=== PATIENT | female | born 1965 | race Caucasian/White ===

== ENCOUNTER → 2018-11-08 | Outpatient (CLI) | payer BC ==
[~2018-11-08] MED LIST: AMLO5TAB6 PO; ASPI81TAEC PO; ATEN50TA2; ATEN50TA2 PO; ATOR1TAB21 PO; ATOR40TA75 PO; AZIT-12 PO; CIPR500T3 PO; FLAG500T PO; HYDR25TAB; HYDR25TAB PO; LEVO75TA34 PO; SYNT75TA PO; TELM1TAB37; TELM1TAB37 PO; TYLE325T5 PO; VIRT1SOL13 PO
--- NOTE | 2018-11-09 02:14 | REP ---
Clinical: Acute bronchitis . Comparison: 09/30/2015 . Technique: PA and lateral. Findings: The mediastinum and cardiac silhouette are normal. The lung balderas are clear and without acute consolidation, effusion, or pneumothorax. The skeletal structures are intact and normal. Impression: 1. No acute cardiopulmonary process. Electronically Signed by Rashawn Thomas MD 11/09/2018 02:05 A
== END ==
LOC: M WUC 10:16
PROVIDERS: ATTEND Physician Assistant
DX: J20.9 Acute bronchitis, unspecified (principal)

== ENCOUNTER 2018-11-13 16:43 | Observation (INO) | payer BC ==
[~2018-11-13] VITALS: Ht 172.7 cm; Wt 79.4 kg
[~2018-11-13 16:43] MED LIST changes: -ATEN50TA2; -ATEN50TA2 PO; -ATOR40TA75 PO; -AZIT-12 PO; -HYDR25TAB; -HYDR25TAB PO; -TELM1TAB37; -TELM1TAB37 PO; -VIRT1SOL13 PO
[2018-11-13] MEDS ORDERED: TELM1TAB37 (16:51)
[2018-11-13] MEDS ORDERED: HYDR25TAB (16:51)
[2018-11-13] MEDS ORDERED: ATEN50TA2 (16:51)
[2018-11-13 17:46] LABS: HEMATOCRIT 34.1 % (36.0-47.0); HEMOGLOBIN 12.7 g/dl (12.0-15.5); MEAN CORPUSCULAR HEMOGLOBIN 31.5 pg (27.0-33.0); MEAN CORPUSCULAR HGB CONC 37.2 g/dl (32.0-36.5); MEAN CORPUSCULAR VOLUME 84.6 fl (80.0-96.0); PLATELET COUNT, AUTOMATED 163 10^3/uL (150-450); RED BLOOD COUNT 4.03 10^6/uL (4.00-5.40)
[2018-11-13 18:02] LABS: BLOOD UREA NITROGEN 9 MG/DL (7-18); CARBON DIOXIDE LEVEL 23 MEQ/L (21-32); CHLORIDE LEVEL 86 MEQ/L (98-107); CREATININE FOR GFR 0.56 MG/DL (0.55-1.30); GLOMERULAR FILTRATION RATE > 60.0 (>51); GLUCOSE, FASTING 96 MG/DL (70-100); MAGNESIUM LEVEL 1.8 MG/DL (1.8-2.4); POTASSIUM SERUM 2.4 MEQ/L (3.5-5.1); SODIUM LEVEL 121 MEQ/L (136-145)
[2018-11-13 18:38] LABS: FREE T4 1.43 NG/DL (0.76-1.46)
[2018-11-13] MEDS ORDERED: POTASSIUM CHLORIDE 10 MEQ SR TABLET PO ONE (19:00)
[2018-11-13] MEDS ORDERED: NS 1,000 ML IV SCH ×2 (19:00→21:31)
--- NOTE | 2018-11-13 19:10 | REP ---
Chest two views HISTORY: Hyponatremia Comparison: 11/08/2018 The lungs are clear. The heart is normal in size. The pulmonary vasculature is normal in appearance. The bony structure is intact. IMPRESSION: No acute disease. Electronically Signed by Fausto Hazel MD 11/13/2018 07:01 P
[2018-11-13 19:27] LABS: CREATININE,RANDOM URINE 23.1 MG/DL
[2018-11-13] MEDS ORDERED: KCL 20MEQ IN 100ML SWI (KRUN) 20 MEQ in APPROPRIATE DILUENT 1 EA IV ONE ×2 (21:45)
--- NOTE | 2018-11-13 22:15 | ECGEPIP ---
Stationary ECG Study [facility] - ED Test Date: 2018-11-13 Pat Name: SOY HUMPHREY Department: Room: - Gender: F Manager Category: [facility] : 1965 Requested By: DANIEL GONZALES Order Number: [id number] Reading MD: Herbert Silva Measurements Intervals [place] Rate: 68 P: 6 KS: 161 QRS: 15 QRSD: 106 T: 9 QT: 471 QTc: 504 Interpretive Statements SINUS RHYTHM PROLONGED QT INTERVAL Previous QTc on tracing done 09-30-18 was 436 ms Electronically Signed On 11-13-2018 22:15:20 EDT by Herbert Silva
[2018-11-13] MEDS ORDERED: ATEN50TA2 PO (22:22)
[2018-11-13] MEDS ORDERED: AZIT-12 PO (22:22)
[2018-11-13] MEDS ORDERED: TELM1TAB37 PO (22:22)
[2018-11-13] MEDS ORDERED: ATOR40TA75 PO (22:22)
[2018-11-13] MEDS ORDERED: HYDR25TAB PO (22:22)
[2018-11-13] MEDS ORDERED: VIRT1SOL13 PO (22:22)
[2018-11-13] MEDS ORDERED: ASPI81TAEC PO (22:22)
[2018-11-13] MEDS: KCL 10MEQ/100ML SWI (KRUN) 10 MEQ in APPROPRIATE DILUENT 1 EA IV SCH (22:26)
[2018-11-13] MEDS: ATORVASTATIN 20 MG TAB PO SCH (23:44)
[2018-11-13] MEDS: ATENOLOL 50 MG TAB PO SCH (23:45)
[2018-11-13 23:48] VITALS: BP 126/80
[2018-11-14] VITALS (8 sets, daily range): BP systolic 98–135; BP diastolic 58–86
[2018-11-14] MEDS: KCL 10MEQ/100ML SWI (KRUN) 10 MEQ in APPROPRIATE DILUENT 1 EA IV SCH (00:45)
[2018-11-14] MEDS: LEVOTHYROXINE 75MCG TABLET (0.075MG) PO SCH (05:27)
[2018-11-14 07:06] LABS: BLOOD UREA NITROGEN 6 MG/DL (7-18); CALCIUM LEVEL 7.9 MG/DL (8.5-10.1); CARBON DIOXIDE LEVEL 26 MEQ/L (21-32); CHLORIDE LEVEL 98 MEQ/L (98-107); CREATININE FOR GFR 0.69 MG/DL (0.55-1.30); GLOMERULAR FILTRATION RATE > 60.0 (>51); GLUCOSE, FASTING 91 MG/DL (70-100); POTASSIUM SERUM 3.2 MEQ/L (3.5-5.1); SODIUM LEVEL 131 MEQ/L (136-145)
--- NOTE | 2018-11-14 07:08 | HPE ---
DATE OF ADMISSION: 11/13/2018 HISTORY OF PRESENT ILLNESS (HPI): This is a 53-year-old female with past medical history of hypertension, hyperlipidemia, hypothyroidism who presents to the emergency room after being sent by her primary medical doctor, Dr. Cody for abnormal labs. The patient has been feeling weak for approximately seven days now, was treated for bronchitis which did not take effect. Her weakness persisted. Labs were sent and the patient was found to be hypokalemic and hyponatremic. In the emergency room (ER) the patient was started on normal saline and potassium was repleted. She denies any other associated symptoms. No chest pain or shortness of breath. She will be admitted for further management of her electrolyte abnormalities. To note, she also has not been given any new medications in the past few months. PAST MEDICAL HISTORY: 1. Hypertension. 2. Hyperlipidemia. 3. Hypothyroidism. ALLERGIES: PENICILLIN. SOCIAL HISTORY: The patient has a 10-pack year history, quit approximately 27 years ago. Denies alcohol or illicit drugs. MEDICATIONS: - amlodipine 5 mg by mouth daily - aspirin 81 mg by mouth daily - atenolol 50 mg by mouth daily - atorvastatin 40 mg by mouth daily - hydrochlorothiazide 25 mg by mouth daily - Synthroid 75 mcg by mouth daily - combisartan 80 mg orally daily REVIEW OF SYSTEMS: Negative for all 10 major systems except what has been mentioned in the HPI. PHYSICAL EXAMINATION: VITAL SIGNS: Blood pressure 143/94, heart 68 and regular, respirations 18, temperature 96.2. Oxygen saturation 96% on room air. HEAD: Normocephalic atraumatic. NECK: Supple, no jugular venous distention (JVD). LUNGS: Clear to auscultation. HEART: S1 audible, no murmurs appreciated. ABDOMEN: Soft, positive bowel sounds. EXTREMITIES: No pedal edema. SKIN: Intact. NEUROLOGIC EXAM: The patient is awake, alert and oriented times three. LABORATORY DATA: Sodium 121, potassium 2.4, chloride 86, CO2 23, anion gap is 12, BUN 9, creatinine 0.56, magnesium is 1.8, TSH 4.6. Urine random osmolality is 165 and sodium 23. IMPRESSION: 1. Hyponatremia. 2. Hyperkalemia. PLAN: The patient is to be admitted to the progressive care unit (PCU). I believe the hyponatremia and the hyperkalemia are both secondary to the thiazide that she is on. I am going to hold her hydrochlorothiazide, further replete her potassium stores and give her general hydration with normal saline at 75 mL per hour and provide her a diet and will follow her sodium and potassium trends. Once they have recovered the patient will likely need a new antihypertensive other than the thiazide. Will continue following her care in the PCU.
[2018-11-14] MEDS ORDERED: POTASSIUM CHLORIDE 10 MEQ SR TABLET PO ONE (07:30)
[2018-11-14] MEDS ORDERED: TELMISARTAN 20 MG TAB PO SCH (09:00)
[2018-11-14] MEDS: AZITHROMYCIN 250 MG TAB PO SCH (09:01)
[2018-11-14] MEDS: ASPIRIN 81 MG ENTERIC TAB PO SCH (09:02)
[2018-11-14 13:35] LABS: BLOOD UREA NITROGEN 6 MG/DL (7-18); CALCIUM LEVEL 8.1 MG/DL (8.5-10.1); CARBON DIOXIDE LEVEL 27 MEQ/L (21-32); CHLORIDE LEVEL 99 MEQ/L (98-107); CREATININE FOR GFR 0.65 MG/DL (0.55-1.30); GLOMERULAR FILTRATION RATE > 60.0 (>51); GLUCOSE, FASTING 86 MG/DL (70-100); POTASSIUM SERUM 3.5 MEQ/L (3.5-5.1); SODIUM LEVEL 132 MEQ/L (136-145)
--- NOTE | 2018-11-14 17:44 | IPN ---
DATE: 11/14/2018 SUBJECTIVE: The patient is seen and examined in the room today. The patient stated her breathing has been improving. Recently, the patient had a cough and runny nose. Denied any acute complaints. OBJECTIVE: VITAL SIGNS: Temperature is 98.5, pulse is 68, respirations 18, blood pressure 98/58, pulse oximetry is 100% in room air. GENERAL: Patient is alert and awake, in no distress. HEENT: Normocephalic, atraumatic. Extraocular motor grossly intact. CARDIOVASCULAR: Positive S1, S2, regular rate. LUNGS: Clear to auscultation bilaterally. ABDOMEN: Soft, nontender. Bowel sounds present. EXTREMITIES: No edema. LABORATORY DATA: Sodium is 131, potassium 3.2, chloride is 98, carbon dioxide 26, BUN 6, creatinine is 0.69, GFR is greater than 60, fasting glucose is 91, calcium is 7.9. ASSESSMENT AND PLAN: 1. Severe hypokalemia. Patient on potassium supplement accordingly. Continue to follow the repeat potassium level. No events on telemetry. Diuretic on hold. 2. Hyponatremia. Patient had IV resuscitation on admission. Sodium level is improving. IV fluid has been discontinued. We will continue watching the sodium level closely to prevent overcorrection. 3. Hypothyroidism. On Synthroid. 4. Hypertension. Currently due to significant electrolyte abnormalities, diuretic will be on hold. Will watch the blood pressure closely. 5. Deep vein thrombosis (DVT) prophylaxis. On thromboembolism deterrent (MERI) compression.
[2018-11-14 19:33] LABS: BLOOD UREA NITROGEN 9 MG/DL (7-18); CALCIUM LEVEL 8.1 MG/DL (8.5-10.1); CARBON DIOXIDE LEVEL 27 MEQ/L (21-32); CHLORIDE LEVEL 98 MEQ/L (98-107); GLOMERULAR FILTRATION RATE > 60.0 (>51); GLUCOSE, FASTING 121 MG/DL (70-100); POTASSIUM SERUM 3.3 MEQ/L (3.5-5.1); SODIUM LEVEL 132 MEQ/L (136-145)
[2018-11-14] MEDS: ATENOLOL 50 MG TAB PO SCH (21:00)
[2018-11-14] MEDS: ATORVASTATIN 20 MG TAB PO SCH (21:37)
[2018-11-15 04:45] VITALS: BP 129/88
[2018-11-15] MEDS: LEVOTHYROXINE 75MCG TABLET (0.075MG) PO SCH (05:32)
[2018-11-15 05:45] LABS: HEMATOCRIT 32.5 % (36.0-47.0); HEMOGLOBIN 11.3 g/dl (12.0-15.5); MEAN CORPUSCULAR HGB CONC 34.8 g/dl (32.0-36.5); PLATELET COUNT, AUTOMATED 154 10^3/uL (150-450); RED BLOOD COUNT 3.65 10^6/uL (4.00-5.40); WHITE BLOOD COUNT 4.6 10^3/uL (4.0-10.0)
[2018-11-15 06:06] LABS: BLOOD UREA NITROGEN 9 MG/DL (7-18); CALCIUM LEVEL 7.9 MG/DL (8.5-10.1); CARBON DIOXIDE LEVEL 28 MEQ/L (21-32); CHLORIDE LEVEL 102 MEQ/L (98-107); CREATININE FOR GFR 0.69 MG/DL (0.55-1.30); GLOMERULAR FILTRATION RATE > 60.0 (>51); GLUCOSE, FASTING 88 MG/DL (70-100); MAGNESIUM LEVEL 1.9 MG/DL (1.8-2.4); POTASSIUM SERUM 3.5 MEQ/L (3.5-5.1); SODIUM LEVEL 135 MEQ/L (136-145)
[2018-11-15 08:00] VITALS: BP 126/80
[2018-11-15] MEDS: AZITHROMYCIN 250 MG TAB PO SCH (09:16)
[2018-11-15] MEDS: ASPIRIN 81 MG ENTERIC TAB PO SCH (09:17)
--- NOTE | 2018-11-21 18:48 | DSES ---
DATE OF ADMISSION: 11/13/2018 DATE OF DISCHARGE: 11/15/2018 CONSULTANTS: None. PRIMARY CARE PROVIDER: Dr. Cody DISCHARGE DIAGNOSES: 1. Severe hypokalemia. 2. Hyponatremia. 3. Hypothyroidism. 4. Hypertension. HOSPITALIZATION COURSE: The patient is a 53-year-old female who was sent to [facility] emergency room by primary care provider on 11/13/2018 for abnormal laboratories. Prior to the admission, the patient was treated for bronchitis. In the emergency room, the patient was found to have significant hyponatremia and hypokalemia, thought secondary to the diuretic. The patient was admitted under the hospitalist service and supplements were given accordingly. Medications were adjusted. Electrolyte abnormalities continued to improve. Clinically, the patient demonstrated improvement. On 11/15/2018, the patient was determined stable for discharge with recommendations to followup with the primary care provider in 1 to 2 weeks. VITAL SIGNS ON DISCHARGE: Temperature 97, pulse 66, respirations 18, blood pressure 126/80, pulse oximetry 98% in room air. LABORATORY DATA: On the day of discharge, WBC 4.6, hemoglobin 11.3, hematocrit 32.5, platelet count is 154. Sodium is 135, potassium 3.5, chloride 102, carbon dioxide 28, BUN 9, creatinine 0.69, GFR greater than 60, fasting glucose 88, calcium is 7.9, magnesium 1.9. Chest x-ray on 11/13/2018 showed no acute disease. DISCHARGE MEDICATIONS: - aspirin 81 mg by mouth daily - atorvastatin 40 mg by mouth at night - azithromycin as directed - levothyroxine 75 mcg by mouth daily - Virtussin A/C by mouth every 6 hours as needed for cough DISCHARGE INSTRUCTIONS: Discontinue line. Discharge home. Activity as tolerated. Low salt diet as tolerated. The patient will followup with the primary care provider in 1 to 2 weeks. Discharge condition is fair. Discharge took greater than 30 minutes.
== END 2018-11-15 10:03 | disposition home or self-care (01) ==
LOC: M ED 16:43 → M ED INP 21:31 → M PCU 11-14 14:53
PROVIDERS: ADMIT Internal Medicine; ATTEND Internal Medicine Nephrology
DX: E87.6 Hypokalemia (principal); E87.1 Hypo-osmolality and hyponatremia; I10 Essential (primary) hypertension; E78.5 Hyperlipidemia, unspecified; E03.9 Hypothyroidism, unspecified; Z87.891 Personal history of nicotine dependence; Z88.0 Allergy status to penicillin; Z79.82 Long term (current) use of aspirin; Z79.899 Other long term (current) drug therapy

== ENCOUNTER → 2018-11-13 | Outpatient (CLI) | payer BC ==
[2018-11-13 14:55] LABS: BASO % 0.4 % (0.0-1.0); EOS # 0.1 10^3/uL (0.0-0.50); HEMATOCRIT 36.4 % (36.0-47.0); HEMOGLOBIN 13.5 g/dl (12.0-15.5); LYMPH # 1.5 10^3/uL (1.5-4.5); LYMPH % 27.1 % (24.0-44.0); MEAN CORPUSCULAR HEMOGLOBIN 31.8 pg (27.0-33.0); MEAN CORPUSCULAR VOLUME 85.8 fl (80.0-96.0); MONO # 0.7 10^3/uL (0.0-0.8); MONO % 12.2 % (0.0-5.0); NEUTROPHILS # 3.1 10^3/uL (1.8-7.7); PLATELET COUNT, AUTOMATED 183 10^3/uL (150-450); RED BLOOD COUNT 4.24 10^6/uL (4.00-5.40); WHITE BLOOD COUNT 5.5 10^3/uL (4.0-10.0)
[2018-11-13 15:01] LABS: MEAN CORPUSCULAR HGB CONC 36.4 g/dl (32.0-36.5)
[2018-11-13 15:34] LABS: BLOOD UREA NITROGEN 9 MG/DL (7-18); CALCIUM LEVEL 8.3 MG/DL (8.5-10.1); CARBON DIOXIDE LEVEL 28 MEQ/L (21-32); CHLORIDE LEVEL 83 MEQ/L (98-107); CREATININE FOR GFR 0.62 MG/DL (0.55-1.30); GLOMERULAR FILTRATION RATE > 60.0 (>51); GLUCOSE, FASTING 90 MG/DL (70-100); POTASSIUM SERUM 2.5 MEQ/L (3.5-5.1); SODIUM LEVEL 122 MEQ/L (136-145)
== END ==
LOC: M WUC 13:44
PROVIDERS: ATTEND Physician Assistant
DX: R53.83 Other fatigue (principal)

== ENCOUNTER 2019-07-25 07:27 | Day surgery (SDC) | payer BC ==
[~2019-07-25] VITALS: Ht 172.7 cm; Wt 81.1 kg
[~2019-07-25 07:27] MED LIST changes: +ALLE1TAB23 PO; +ATEN50TA2; +ATEN50TA2 PO; +ATOR40TA75 PO; +AZIT-12 PO; +HYDR25TAB; +HYDR25TAB PO; +METO1TAB33 PO; +NS 1,000 ML IV ONE; +PROPOFOL 200 MG/20 ML VIAL As Ordered ONE; +TELM1TAB37; +TELM1TAB37 PO; +VIRT1SOL13 PO
[2019-07-25] MEDS ORDERED: LIDOCAINE 2% INJ 100 MG/5 ML SDV (FOR ANES.) As Ordered ONE (07:44)
[2019-07-25] MEDS ORDERED: LABETALOL HCL 100 MG/20 ML VIAL As Ordered ONE (08:52)
[2019-07-25] MEDS ORDERED: PROPOFOL 200 MG/20 ML VIAL As Ordered ONE (08:58)
--- NOTE | 2019-07-25 09:15 | ROOR ---
Patient Name: Na Orellana Procedure Date: 07/25/2019 8:49 AM Date of : 1965 Age: 53 Room: [facility] Gender: Female Note Status: Finalized Procedure: Total Colonoscopy to Cecum + Cold Snare Polypectomy Indications: High risk colon cancer surveillance: Personal history of colonic polyps, Last colonoscopy: 2013 Providers: Ryan Coto MD Referring MD: INA WILL JR, MD Requesting Provider: Medicines: Monitored Anesthesia Care Complications: No immediate complications. Procedure: Pre-Anesthesia Assessment: - The heart rate, respiratory rate, oxygen saturations, blood pressure, adequacy of pulmonary ventilation, and response to care were monitored throughout the procedure. The Colonoscope was introduced through the anus and advanced to the cecum, identified by appendiceal orifice and ileocecal valve. The colonoscopy was performed without difficulty. The patient tolerated the procedure well. The quality of the bowel preparation was excellent. Findings: The perianal and digital rectal examinations were normal. Non-bleeding internal hemorrhoids were found during retroflexion. The hemorrhoids were small and Grade I (internal hemorrhoids that do not prolapse). Multiple small and large-mouthed diverticula were found in the recto-sigmoid colon, sigmoid colon and descending colon. A small polyp was found in the hepatic flexure. The polyp was sessile. The polyp was removed with a cold snare. Resection and retrieval were complete. The exam was otherwise without abnormality on direct and retroflexion views. Impression: - Non-bleeding internal hemorrhoids. - Diverticulosis in the recto-sigmoid colon, in the sigmoid colon and in the descending colon. - One small polyp at the hepatic flexure, removed with a cold snare. Resected and retrieved. - The examination was otherwise normal on direct and retroflexion views. - The exam was otherwise normal to the cecum. Recommendation: - Patient has a contact number available for emergencies. The signs and symptoms of potential delayed complications were discussed with the patient. Return to normal activities tomorrow. Written discharge instructions were provided to the patient. - High fiber diet. - Discharge patient to home. - Continue present medications. - Await pathology results. - Telephone GI clinic for pathology results in 1 week. - Return to referring physician. - Repeat colonoscopy date to be determined after pending pathology results are reviewed for surveillance based on pathology results. - Return to referring physician. - The findings and recommendations were discussed with the patient's family. Ryan Coto MD Ryan Coto MD 07/25/2019 9:14:57 AM Electronically signed by Ryan Coto MD Number of Addenda: 0 Note Initiated On: 07/25/2019 8:49 AM Estimated Blood Loss: Estimated blood loss: none.
[2019-07-25 09:51] VITALS: BP 167/105
== END 2019-07-25 09:49 | disposition home or self-care (01) ==
LOC: M OPP 07:27
PROVIDERS: ATTEND Internal Medicine Gastroenterology
DX: Z12.11 Encounter for screening for malignant neoplasm of colon (principal); Z86.010 Personal history of colon polyps; K64.0 First degree hemorrhoids; D12.3 Benign neoplasm of transverse colon; K57.30 Diverticulosis of large intestine without perforation or abscess without bleeding; Z79.899 Other long term (current) drug therapy; Z88.0 Allergy status to penicillin; Z87.891 Personal history of nicotine dependence

== ENCOUNTER → 2020-02-11 | Outpatient (REF) | payer BC ==
[~2020-02-11] MED LIST changes: -NS 1,000 ML IV ONE; -PROPOFOL 200 MG/20 ML VIAL As Ordered ONE
== END ==
LOC: M LAB REF 20:04
PROVIDERS: ATTEND Physician Assistant
DX: K59.00 Constipation, unspecified (principal)

== ENCOUNTER → 2021-07-15 | Outpatient (CLI) | payer BC ==
[~2021-07-15] MED LIST changes: +AMLO1TAB24 PO; -AMLO5TAB6 PO; +ASPI-569 PO; -ASPI81TAEC PO; +HYDR-3490; +HYDR-3490 PO; -HYDR25TAB; -HYDR25TAB PO
--- NOTE | 2021-07-15 16:47 | REPMRS ---
Patient History The patient states she had a clinical breast exam in 03-16-2021. Patient is postmenopausal. Family history of breast cancer at age 45 in mother, prostate cancer at age 86 in father. No Hormone Replacement Therapy Tomosynthesis is performed. Volpara breast density is b. [facility] lifetime risk of breast cancer 15.3%. Patient states no breast complaints today. Patient has signed MRS History Sheet. Digital Woman Screen Mammo: July 15, 2021 - Exam #: [id number] Bilateral CC and MLO view(s) were taken. Technologist: Ely Vargas Plaque Maker FINDINGS: The breast tissue is heterogeneously dense. This may lower the sensitivity of mammography. There has been no change in the appearance of the mammogram from the prior studies. There is a moderate amount of residual fibroglandular tissue which is fairly symmetric. There is no interval development of dominant mass, areas of architectural distortion, or clustered microcalcification typical of malignancy. Assessment: BI-RADS/ACR category 1 mammogram. Negative Mammogram. Recommendation Routine screening mammogram in 1 year (for women over age 40). This mammogram was interpreted with the aid of an FDA-approved computer-aided dectection system. Electronically Signed By: Brendan Denise MD 07/15/21 [id number]
== END ==
LOC: M WHC 15:01
PROVIDERS: ATTEND Obstetrics & Gynecology
DX: Z12.31 Encounter for screening mammogram for malignant neoplasm of breast (principal); Z78.0 Asymptomatic menopausal state; Z80.3 Family history of malignant neoplasm of breast

== ENCOUNTER → 2021-10-13 | Outpatient (REF) | payer MEDICAID | LOC: M LAB REF 16:11 | PROVIDERS: ATTEND Physician Assistant Medical | DX: R10.9 Unspecified abdominal pain (principal); R53.83 Other fatigue ==

== ENCOUNTER → 2022-04-01 | Outpatient (CLI) | payer MEDICAID ==
[~2022-04-01] MED LIST changes: +CODE118L PO; -VIRT1SOL13 PO
[2022-04-01 19:25] LABS: BASO % 0.3 % (0.0-1.0); EOS # 0.1 10^3/uL (0.0-0.5); EOS % 1.2 % (0.0-3.0); HEMATOCRIT 39.2 % (36.0-47.0); HEMOGLOBIN 13.1 g/dl (12.0-15.5); LYMPH # 1.2 10^3/uL (1.5-5.0); LYMPH % 12.9 % (24.0-44.0); MEAN CORPUSCULAR HGB CONC 33.4 g/dl (32.0-36.5); MEAN CORPUSCULAR VOLUME 95.6 fl (80.0-96.0); MONO # 0.7 10^3/uL (0.0-0.8); MONO % 7.2 % (2.0-8.0); NEUTROPHILS # 7.2 10^3/uL (1.5-8.5); PLATELET COUNT, AUTOMATED 243 10^3/uL (150-450); WHITE BLOOD COUNT 9.2 10^3/uL (4.0-10.0)
[2022-04-01 19:59] LABS: ALBUMIN 4.3 GM/DL (3.2-5.2); ALT/SGPT 33 U/L (12-78); BILIRUBIN,TOTAL 1.2 MG/DL (0.2-1.0); BLOOD UREA NITROGEN 7 MG/DL (7-18); CALCIUM LEVEL 9.8 MG/DL (8.5-10.1); CARBON DIOXIDE LEVEL 31 MEQ/L (21-32); CHLORIDE LEVEL 94 MEQ/L (98-107); CREATININE FOR GFR 0.72 MG/DL (0.55-1.30); GLOMERULAR FILTRATION RATE > 60.0 (>51); GLUCOSE, FASTING 112 MG/DL (70-100); POTASSIUM SERUM 3.5 MEQ/L (3.5-5.1); SODIUM LEVEL 131 MEQ/L (136-145); TOTAL PROTEIN 8.7 GM/DL (6.4-8.2)
== END ==
LOC: M WUC 14:46
PROVIDERS: ATTEND Physician Assistant
DX: R10.30 Lower abdominal pain, unspecified (principal)

== ENCOUNTER → 2022-11-11 | Outpatient (REF) | payer OTHER | LOC: M PLALAB 17:03 | PROVIDERS: ATTEND Nurse Practitioner Family | DX: Z12.4 Encounter for screening for malignant neoplasm of cervix (principal) | CPT/HCPCS: 87624; G0123 ==

== ENCOUNTER → 2023-08-16 | Outpatient (REF) | payer OTHER ==
[~2023-08-16] MED LIST changes: -ALLE1TAB23 PO; +FEXO-157 PO
== END ==
LOC: M LAB REF 09:51
PROVIDERS: ATTEND Nurse Practitioner Family
DX: R30.0 Dysuria (principal)

== ENCOUNTER 2024-08-15 06:35 | Day surgery (SDC) | payer OTHER ==
[~2024-08-15] VITALS: Ht 172.7 cm; Wt 79.5 kg
[~2024-08-15 06:35] MED LIST changes: -FEXO-157 PO; +FEXO-63 PO; +FLUT15.820; +LEVO88TA3 PO
[2024-08-15] MEDS ORDERED: LIDOCAINE 2% 100MG/5ML SDV (FOR ANES.) As Ordered ONE (07:01)
[2024-08-15] MEDS ORDERED: dexmedeTOMIDine (4MCG/ML)200MCG/50ML BTL (PRECEDEX) As Ordered ONE (07:01)
[2024-08-15] MEDS ORDERED: propofoL 200 MG/20 ML VIAL As Ordered ONE (07:01)
[2024-08-15 07:46] VITALS: TEMP 97.6
[2024-08-15 08:00] VITALS: BP 169/94; O2SAT 99
== END 2024-08-15 08:06 | disposition home or self-care (01) ==
LOC: M OPP 06:35
PROVIDERS: ATTEND Internal Medicine Gastroenterology
DX: Z12.11 Encounter for screening for malignant neoplasm of colon (principal); K64.0 First degree hemorrhoids; K57.30 Diverticulosis of large intestine without perforation or abscess without bleeding; Z86.0100 Personal history of colon polyps, unspecified; Z87.19 Personal history of other diseases of the digestive system; I10 Essential (primary) hypertension; E03.9 Hypothyroidism, unspecified; E78.00 Pure hypercholesterolemia, unspecified; Z90.710 Acquired absence of both cervix and uterus; Z79.899 Other long term (current) drug therapy; Z79.890 Hormone replacement therapy; Z90.89 Acquired absence of other organs

== ENCOUNTER → 2025-03-19 | Outpatient (REF) | payer OTHER | LOC: M LAB REF 14:57 | PROVIDERS: ATTEND Nurse Practitioner Adult Health | DX: Z11.59 Encounter for screening for other viral diseases (principal) ==